=== PATIENT | male | born 1965 | race Two or more races ===

== ENCOUNTER → 2019-01-16 | Day surgery (SDC) | payer OTHER ==
[~2019-01-16] MED LIST: IV RINGERS,LACTATED 1000ML 1,000 ML IV SCH; LIDOCAINE 1% PF 2 ML VIAL. ID PRN; LIDOCAINE 2% PF 5 ML VIAL. ONE; MIDAZOLAM HCL/PF 2 MG/2 ML VIAL. IV PRN; PROPOFOL 20 ML IV ONE; [UNRECOGNIZED DRUG - CODE] PO; fentaNYL PF VIAL 100 MCG/2 ML VIAL IV PRN
[2019-01-16 09:31] VITALS: BP 128/72
--- NOTE | 2019-01-16 23:10 | CONS ---
DATE OF CONSULTATION: 01/16/2019 GASTROINTESTINAL CONSULTATION REFERRING PHYSICIAN: Dr. Adrian Bowser. REASON FOR CONSULTATION: Colorectal screening. 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 Bowel habits are regular without diarrhea or constipation. There has been no melena and/or hematochezia. Weight and appetite are stable. He is otherwise in good health. Family history is unrevealing for colon polyps or colon cancer. PAST MEDICAL HISTORY: Bilaterally detached retinas. ALLERGIES: None. MEDICATIONS: phenylephrine as needed. SOCIAL HISTORY: He is a smoker, social drinker. FAMILY HISTORY: Noncontributory. PAST SURGICAL HISTORY: Retinal detachment. REVIEW OF SYSTEMS: HEENT: There is no decrease in visual acuity issues. CARDIAC: No history of hypertension, palpitations, syncope. PULMONARY: No shortness breath, cough, asthma. RENAL: No dysuria, frequency, hematuria. PSYCHIATRIC: No mood swings, depression, insomnia. NEUROLOGIC: No stroke, migraines, or neuropathy. HEMATOLOGIC: No bleeding, bruising, coagulopathy. ENDOCRINE: No history of heat or cold tolerance, diabetes, or thyroid issues. MUSCULOSKELETAL: No osteoarthrosis, arthralgias, myalgias. DERMATOLOGIC: No skin rashes or pruritus. PHYSICAL EXAMINATION: GENERAL: Reveals a well-nourished, well-developed male, who is alert and cooperative, in no acute distress. VITAL SIGNS: Temperature 97, pulse is 55, and respirations 20. HEENT: Normocephalic, atraumatic head. Pupils and extraocular muscles are not tested. Sclerae anicteric. NECK: Supple. LUNGS: Clear. CARDIOVASCULAR: Reveals an S1, S2 without S3, S4, or appreciable murmur. ABDOMEN: Soft abdomen, normal bowel sounds without appreciable hepatosplenomegaly. EXTREMITIES: Reveals no cyanosis, clubbing, or edema. IMPRESSION: Colorectal screening is warranted at this time. Risks and benefits have been discussed with the patient including risk of hemorrhage and perforation and is willing to proceed at this time. I thank Dr. Bowser for allowing us to consult and participate in this patient's care. DALTON DREW MD DR: ERWIN/maria isabel JOB#: [id number] / [id number] ADRIAN Contreras MD
== END ==
LOC: SURG 07:36
PROVIDERS: ATTEND Internal Medicine Gastroenterology
DX: Z12.11 Encounter for screening for malignant neoplasm of colon (principal); K57.30 Diverticulosis of large intestine without perforation or abscess without bleeding; K64.0 First degree hemorrhoids; F17.210 Nicotine dependence, cigarettes, uncomplicated; Z72.89 Other problems related to lifestyle
CPT/HCPCS: 45378; J2001; J2704

== ENCOUNTER → 2021-09-27 | Outpatient (CLI) | payer OTHER ==
[2019-01-16 09:31] VITALS: BP 128/72
[~2021-09-27] MED LIST changes: -IV RINGERS,LACTATED 1000ML 1,000 ML IV SCH; -LIDOCAINE 1% PF 2 ML VIAL. ID PRN; -LIDOCAINE 2% PF 5 ML VIAL. ONE; -MIDAZOLAM HCL/PF 2 MG/2 ML VIAL. IV PRN; -PROPOFOL 20 ML IV ONE; +[UNRECOGNIZED DRUG - CODE] PO; -[UNRECOGNIZED DRUG - CODE] PO; -fentaNYL PF VIAL 100 MCG/2 ML VIAL IV PRN
--- NOTE | 2021-09-27 10:01 | RAD ---
COMPLETE ABDOMINAL ULTRASOUND Clinical History: Reason: RLQ PAIN / Spl. Instructions: / History: Comparison: None. Technique: Sonographic examination of the abdomen was performed and multiple grayscale and color Dopp ler static images were obtained. Findings: Most of the liver is visualized and is homogeneous. The liver measures 15.6 cm. Ultrasound is not sen sitive for detecting solid liver lesions. Portal flow is hepatopetal. The common bile duct is normal in caliber, measuring 3 mm. in diameter. Gallbladder wall is normal. Per report, sonographic Bonilla sign is negative. There is no cholelithias is or pericholecystic fluid. Due to overlying bowel gas in the midline the pancreas, portions of the left hepatic lobe, IVC, proxi mal abdominal aorta are obscured. The right kidney is normal in echotexture and measures 11.8 cm. The left kidney is normal in echotex ture and measures 11.5 cm. Corticomedullary differentiation is preserved. There is no hydronephrosis. The spleen is not enlarged, measuring 10.6 cm. Visualized portions of the abdominal aorta are normal. IMPRESSION: There is no acute abdominal abnormality identified sonographically. Electronically signed by: Corey Bradsahw MD (09/27/2021 9:59 AM) [id number]
== END ==
LOC: US 07:30
PROVIDERS: ATTEND Family Medicine
DX: R14.3 Flatulence (principal)
CPT/HCPCS: 76700